=== PATIENT | female | born 1995 | race Caucasian/White ===

== ENCOUNTER 2021-07-29 11:15 | Emergency (ER) | payer BC, OTHER ==
[2021-07-29 11:46] VITALS: BP 122/64; PULSE 92; TEMP 99.6; BMI 26.6
[2021-07-29 12:58] LABS: ALBUMIN 4.2 g/dl (3.4-5.0); BILIRUBIN,TOTAL 0.3 mg/dl (0.2-1); CREATININE 0.7 mg/dl (0.55-1.3); TOT PROT 7.2 g/dl (6.4-8.2)
[2021-07-29 13:01] LABS: ACTIVATED PTT 28.5 SECONDS (25.2-36.5)
[2021-07-29 13:05] LABS: INR 1.13 (0.83-1.09); PROTHROMBIN TIME (PATIENT) 12.5 SEC (9.7-13.0)
[2021-07-29 14:32] LABS: BASO % 0.3 % (0-2.0); EOS % 0.6 % (0-4.5); HEMATOCRIT 40.8 % (32.4-45.2); HEMOGLOBIN 13.8 GM/dL (10.7-15.3); LYMPH % 15.1 % (8-40); MCH 31.4 pg (25.7-33.7); MCHC 33.9 g/dl (32.0-36.0); MEAN CELL VOLUME 92.6 fl (80-96); MEAN PLT VOLUME 9.4 fl (7.5-11.1); MONO % 6.7 % (3.8-10.2); NEUT % 77.3 % (42.8-82.8); PLATELET COUNT 271 10^3/uL (134-434); RBC 4.41 M/mm3 (3.60-5.2); RDW 12.6 % (11.6-15.6); WHITE BLOOD COUNT 11.1 K/mm3 (4.0-10.0)
== END 2021-07-29 18:02 | disposition home or self-care (01) ==
LOC: FER 11:15
DX: K92.1 Melena (principal)
CPT/HCPCS: 36415; 74174-TC; 76830-TC; 80053; 81003; 83605; 83690; 84703; 85025; 85610; 85651; 85730; 86140; 86850; 86900; 86901; 93005; 99285-25; C9803; U0003; U0005